=== PATIENT | female | born 1970 | race Two or more races ===

== ENCOUNTER 2018-03-13 21:27 | Emergency (ER) | payer SELFPAY ==
[~2018-03-13] VITALS: Ht 170.2 cm; Wt 90.7 kg
[2018-03-13] MEDS ORDERED: DEXAMETHASONE 4 MG TABLET PO ONE (22:00)
[2018-03-13] MEDS ORDERED: KETOROLAC 30 MG/ML VIAL. IV ONE (22:15)
[2018-03-13] MEDS ORDERED: IV NORMAL SALINE 1000ML BAG 1,000 ML IV ONE (22:15)
[2018-03-13] MEDS ORDERED: ACETAMINOPHEN 500 MG TABLET PO ONE (22:15)
[2018-03-13] MEDS ORDERED: METOCLOPRAMIDE HCL 10 MG/2 ML VIAL. IV ONE (22:15)
[2018-03-13 22:23] LABS: BASO % 0 % (0-3); EOS % 0 % (0-3); HEMATOCRIT 32.5 % (36.0-47.0); HEMOGLOBIN 10.7 g/dL (12.0-15.5); LYMPH # 1.6 x10^3/uL (1.0-4.8); LYMPH % 13 % (24-48); MEAN CORPUSCULAR HEMOGLOBIN 25 pg (25-35); MEAN CORPUSCULAR HGB CONC 33 g/dL (31-37); MEAN CORPUSCULAR VOLUME 76 fL (79-100); MONO # 0.9 x10^3/uL (0.0-1.1); MONO % 8 % (0-9); NEUT # 9.2 x10^3uL (1.8-7.7); NEUT % 78 % (31-73); PLATELET COUNT 220 x10^3/uL (140-400); RED CELL DISTRIBUTION WIDTH 15.2 % (11.5-14.5); WHITE BLOOD COUNT 11.7 x10^3/uL (4.0-11.0)
[2018-03-13 22:29] LABS: INFLUENZA A PATIENT NEGATIVE (NEGATIVE); INFLUENZA B PATIENT NEGATIVE (NEGATIVE)
[2018-03-13 22:32] LABS: CALCIUM 9.2 mg/dL (8.5-10.1); CREATININE 0.9 mg/dL (0.6-1.0); GFR 67.7; POTASSIUM 3.7 mmol/L (3.5-5.1)
[2018-03-13 22:37] LABS: ALBUMIN 3.4 g/dL (3.4-5.0); ALBUMIN/GLOBULIN RATIO 0.7 (1.0-1.7); MAGNESIUM 1.8 mg/dL (1.8-2.4); TOTAL BILIRUBIN 0.4 mg/dL (0.2-1.0); TOTAL PROTEIN 8.1 g/dL (6.4-8.2)
--- NOTE | 2018-03-13 23:48 | PHYS DOC ---
Past Medical History Past Medical History: Anemia Past Surgical History: Oophorectomy Additional Information: nonsmoker Alcohol Use: None Drug Use: None Adult General Chief Complaint Chief Complaint: FLU SYMPTOM HPI HPI Patient is a 47 YO F that is presenting with abdominal pain that began on Wednesday. She describes the pain as sharp, constant and is localized to the bilateral lower quadrant. She is taking ibuprofen which is not related to pain. She is also reporting fever, sore throat, and frontal headache. She has no significant past medical history. She has had a left unilateral oophorectomy. Her last bowel movement was earlier today, normal consistency. Her last menstrual period was 17 days ago. Patient denies trauma. Review of Systems Review of Systems Constitutional: Reports fever and chills [] Eyes: Denies change in visual acuity, redness, or eye pain [] HENT: Denies nasal congestion, reports sore throat [] Respiratory: Denies cough or shortness of breath [] Cardiovascular: Denies chest pain or palpitations [] GI: Reports abdominal pain, denies nausea, vomiting, and diarrhea [] : Denies dysuria or hematuria [] Musculoskeletal: Denies back pain or joint pain [] Integument: Denies rash or skin lesions [] Neurologic: Denies headache, focal weakness or sensory changes [] Complete systems were reviewed and found to be within normal limits, except as documented in this note. Current Medications Current Medications Current Medications Medications (Trade) Dose Ordered Sig/[facility] Start Time Stop Time Status Last Admin Dose Admin Acetaminophen (Tylenol) 500 mg 1X ONCE 03/13/18 22:15 03/13/18 22:16 DC 03/13/18 22:25 500 MG Dexamethasone (Decadron) 10 mg 1X ONCE 03/13/18 22:00 03/13/18 22:01 DC 03/13/18 22:26 10 MG Ketorolac Tromethamine (Toradol 30mg Vial) 30 mg 1X ONCE 03/13/18 22:15 03/13/18 22:16 DC 03/13/18 22:27 30 MG Metoclopramide HCl (Reglan Vial) 10 mg 1X ONCE 03/13/18 22:15 03/13/18 22:16 DC 03/13/18 22:26 10 MG Ondansetron HCl (Zofran) 4 mg 1X ONCE 03/14/18 00:15 03/14/18 00:16 DC 03/14/18 00:27 4 MG Sodium Chloride 1,000 ml @ 1,000 mls/hr 1X ONCE 03/13/18 22:15 03/13/18 23:14 DC 03/13/18 22:27 1,000 MLS/HR Allergies Allergies Allergies Coded Allergies Type Severity Reaction Last Updated Verified No Known Drug Allergies 03/13/18 No Physical Exam Physical Exam Constitutional: Well developed, well nourished, no acute distress, non-toxic appearance. [] HENT: Normocephalic, atraumatic, nose normal. [] Eyes: Conjunctiva normal, no discharge. [] Neck: Normal range of motion, no tenderness. [] Cardiovascular: Heart rate regular rhythm, no murmur [] Lungs & Thorax: Bilateral breath sounds clear to auscultation [] Abdomen: Bowel sounds normal, soft, tenderness to palpation in the RLQ, non- peritoneal. [] Skin: Warm, dry, no erythema, no rash. [] Back: No tenderness, no CVA tenderness. [] Extremities: No tenderness, no edema. [] Neurologic: Alert and oriented X 3, no focal deficits noted. [] Psychologic: Affect normal, judgement normal, mood normal. [] Current Patient Data Vital Signs Vital Signs Date Time Temp Pulse Resp B/P (MAP) Pulse Ox O2 Delivery O2 Flow Rate FiO2 03/14/18 00:29 99.2 114 20 135/70 (91) 94 Room Air 99.2 Lab Values Laboratory Tests Test 03/13/18 22:00 03/13/18 22:05 03/13/18 23:35 Influenza Type A Antigen Negative (NEGATIVE) Influenza Type B Antigen Negative (NEGATIVE) White Blood Count 11.7 x10^3/uL (4.0-11.0) H Red Blood Count 4.30 x10^6/uL (3.50-5.40) Hemoglobin 10.7 g/dL (12.0-15.5) L Hematocrit 32.5 % (36.0-47.0) L Mean Corpuscular Volume 76 fL (79-100) L Mean Corpuscular Hemoglobin 25 pg (25-35) Mean Corpuscular Hemoglobin Concent 33 g/dL (31-37) Red Cell Distribution Width 15.2 % (11.5-14.5) H Platelet Count 220 x10^3/uL (140-400) Neutrophils (%) (Auto) 78 % (31-73) H Lymphocytes (%) (Auto) 13 % (24-48) L Monocytes (%) (Auto) 8 % (0-9) Eosinophils (%) (Auto) 0 % (0-3) Basophils (%) (Auto) 0 % (0-3) Neutrophils # (Auto) 9.2 x10^3uL (1.8-7.7) H Lymphocytes # (Auto) 1.6 x10^3/uL (1.0-4.8) Monocytes # (Auto) 0.9 x10^3/uL (0.0-1.1) Eosinophils # (Auto) 0.0 x10^3/uL (0.0-0.7) Basophils # (Auto) 0.0 x10^3/uL (0.0-0.2) Maternal Serum HCG Beta Subunit < 1 mIU/mL (0-5) Sodium Level 136 mmol/L (136-145) Potassium Level 3.7 mmol/L (3.5-5.1) Chloride Level 101 mmol/L (98-107) Carbon Dioxide Level 24 mmol/L (21-32) Anion Gap 11 (6-14) Blood Urea Nitrogen 10 mg/dL (7-20) Creatinine 0.9 mg/dL (0.6-1.0) Estimated GFR (Cockcroft-Gault) 67.7 BUN/Creatinine Ratio 11 (6-20) Glucose Level 100 mg/dL (70-99) H Calcium Level 9.2 mg/dL (8.5-10.1) Magnesium Level 1.8 mg/dL (1.8-2.4) Total Bilirubin 0.4 mg/dL (0.2-1.0) Aspartate Amino Transferase (AST) 14 U/L (15-37) L Alanine Aminotransferase (ALT) 16 U/L (14-59) Alkaline Phosphatase 75 U/L (46-116) Total Protein 8.1 g/dL (6.4-8.2) Albumin 3.4 g/dL (3.4-5.0) Albumin/Globulin Ratio 0.7 (1.0-1.7) L Lipase 74 U/L (73-393) Urine Collection Type Clean catch Urine Color Yellow Urine Clarity Clear Urine pH 6.5 Urine Specific [place] 1.025 Urine Protein 30 mg/dL (NEG-TRACE) Urine Glucose (UA) Negative mg/dL (NEG) Urine Ketones (Stick) >=80 mg/dL (NEG) Urine Blood Small (NEG) Urine Nitrite Negative (NEG) Urine Bilirubin Negative (NEG) Urine Urobilinogen Dipstick 1.0 mg/dL (0.2 mg/dL) Urine Leukocyte Esterase Negative (NEG) Urine RBC 6-10 /HPF (0-2) Urine WBC Occ /HPF (0-4) Urine Squamous Epithelial Cells Many /LPF Urine Bacteria Moderate /HPF (0-FEW) Urine Mucus Marked /LPF Laboratory Tests 03/13/18 22:05 Laboratory Tests 03/13/18 22:05 EKG EKG [] Radiology/Procedures Radiology/Procedures PROCEDURE: CT ABDOMEN PELVIS WO CONTRAST CT abdomen and pelvis without contrast PQRS statement: CT scans at this facility use dose reduction including either automated exposure control, iterative reconstructions, and /or weight based radiation dosing via mA and kV modification when appropriate to reduce radiation dose to as low as reasonably achievable. HISTORY: Right lower quadrant abdominal pain. TECHNIQUE: Helical noncontrast CT imaging abdomen and pelvis was acquired. Abdomen findings: Lung bases and bones are unremarkable. Pancreas, spleen, liver, gallbladder, adrenal glands and kidneys are unremarkable. No urinary calculi or hydronephrosis. Scattered colonic diverticulosis. Appendix is negative. No obstruction or inflammatory changes in GI tract. No abdominal fluid. 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 There is mild fullness of the right adnexa somewhat obscured by surrounding bowel loops and the adjacent cecum anteriorly, underlying cyst or mass lesion of the right ovary not excluded versus enlargement of the ovary. Left ovary poorly visualized. No bladder calculi. Uterus, rectum and bones are unremarkable. No pelvic fluid. IMPRESSION: 1. Asymmetric prominence of the right adnexa raising the possibility of enlargement of the ovary versus a cystic or solid mass. This could be further characterized by pelvic sonography. 2. The appendix is negative. 3. No urinary calculi or hydronephrosis. 4. Colonic diverticulosis without inflammatory change. Electronically signed by: Yves Quiros MD (03/13/2018 11:47 PM) [facility] [place] Course & Med Decision Making Course & Med Decision Making Pertinent Labs and Imaging studies reviewed. (See chart for details) Patient is a 47-year-old female is presenting with 3 days worth of bilateral lower quadrant abdominal pain. Labs obtained and posted to chart. Slight elevation in white count at 11.7. UA with concerns for contamination, there does not appear to be an active infection. CT abdomen and pelvis shows asymmetric prominence of the right adnexa possible enlargement due to cystic or solid mass. No other acute process present. Pain and nausea addressed. Discussed possible follow-up with sheet metal production worker. Patient stable for discharge with outpatient follow-up with PCP/sheet metal production worker. Discussed findings and plan with patient and family, who acknowledge understanding and agreement. Dragon Disclaimer Dragon Disclaimer This electronic medical record was generated, in whole or in part, using a voice recognition dictation system. Departure Departure Impression: Primary Impression: Abdominal pain Additional Impression: Ovarian cyst Disposition: HOME, SELF-CARE Condition: STABLE Referrals: NO PCP (PCP) VINNIE CHAWLA MD, DONALD G Jr MD Patient Instructions: Abdominal Pain, [id number], Hernia, [id number], Ovarian Cyst, [id number] Scripts Ondansetron (ONDANSETRON ODT) 4 Mg Tab.rapdis 1 TAB PO PRN Q6-8HRS for VOMITING, #16 TAB Prov: NATE TONG DO 03/14/18 Problem Qualifiers Primary Impression: Abdominal pain Abdominal location: right lower quadrant Qualified Codes: R10.31 - Right lower quadrant pain Additional Impression: Ovarian cyst Laterality: right Qualified Codes: N83.201 - Unspecified ovarian cyst, right side NATE TONG DO Mar 13, 2018 23:48
--- NOTE | 2018-03-13 23:51 | RAD ---
CT abdomen and pelvis without contrast PQRS statement: CT scans at this facility use dose reduction including either automated exposure control, iterative reconstructions, and /or weight based radiation dosing via mA and kV modification when appropriate to reduce radiation dose to as low as reasonably achievable. HISTORY: Right lower quadrant abdominal pain. TECHNIQUE: Helical noncontrast CT imaging abdomen and pelvis was acquired. Abdomen findings: Lung bases and bones are unremarkable. Pancreas, spleen, liver, gallbladder, adrenal glands and kidneys are unremarkable. No urinary calculi or hydronephrosis. Scattered colonic diverticulosis. Appendix is negative. No obstruction or inflammatory changes in GI tract. No abdominal fluid. 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 There is mild fullness of the right adnexa somewhat obscured by surrounding bowel loops and the adjacent cecum anteriorly, underlying cyst or mass lesion of the right ovary not excluded versus enlargement of the ovary. Left ovary poorly visualized. No bladder calculi. Uterus, rectum and bones are unremarkable. No pelvic fluid. IMPRESSION: 1. Asymmetric prominence of the right adnexa raising the possibility of enlargement of the ovary versus a cystic or solid mass. This could be further characterized by pelvic sonography. 2. The appendix is negative. 3. No urinary calculi or hydronephrosis. 4. Colonic diverticulosis without inflammatory change. Electronically signed by: Yves Quiros MD (03/13/2018 11:47 PM) [facility]
[2018-03-13 23:52] LABS: BILIRUBIN,URINE NEGATIVE (NEG); CLARITY,URINE CLEAR; COLOR,URINE YELLOW; NITRITE,URINE NEGATIVE (NEG); PH,URINE 6.5; PROTEIN,URINE 30 mg/dL (NEG-TRACE)
[2018-03-13 23:59] LABS: BACTERIA,URINE MODERATE /HPF (0-FEW); SQUAMOUS EPITHELIAL CELL,UR MANY /LPF; WBC,URINE OCC /HPF (0-4)
[2018-03-14] MEDS ORDERED: ONDANSETRON PF 4 MG/2 ML VIAL. IV ONE (00:15)
[2018-03-14 00:29] VITALS: BP 135/70
[2018-03-14] MEDS ORDERED: ONDA4TAB12 PO (00:35)
== END 2018-03-14 00:52 | disposition home or self-care (01) ==
LOC: ER 21:27
DX: N83.201 Unspecified ovarian cyst, right side (principal); K57.32 Diverticulitis of large intestine without perforation or abscess without bleeding; R50.9 Fever, unspecified; J02.9 Acute pharyngitis, unspecified; Z90.721 Acquired absence of ovaries, unilateral
CPT/HCPCS: 36415; 74176; 80053; 81001; 83690; 83735; 84702; 85025; 87086; 87804; 96374; 96375; 99284; J1885; J2405; J2765; J7030; J8540